=== PATIENT | female | born 1995 | race American Indian/Alaskan Native ===

== ENCOUNTER 2018-09-20 16:02 | Emergency (ER) | payer SELFPAY ==
[2018-09-20 17:05] VITALS: TEMP 98.2
--- NOTE | 2018-09-20 17:35 | ED PDOC ---
Arrival/HPI - General Chief Complaint: Female Genitourinary Time Seen by Provider: 09/20/18 16:08 Historian: Patient - History of Present Illness Narrative History of Present Illness (Text): 09/20/18 18:31 23yr old female presents today with a 4 day history of dysuria, urinary frequency, urgency and hematuria. pt denies abdominal pain. no n/v/d/c. no cp or sob. no back pain. no medications taken at home. no fever/chills. No vaginal bleeding or discharge. no other complaints. Past Medical History - Provider Review Nursing Documentation Reviewed: Yes - Travel History Have you recently traveled outside [place] w/in the past 3 mons?: No - Psychiatric Hx Substance Use: No - Anesthesia Hx Anesthesia: No Hx Anesthesia Reactions: No Hx Malignant Hyperthermia: No Family/Social History - Physician Review Nursing Documentation Reviewed: Yes Family/Social History: Unknown Family HX Smoking Status: Never Smoked Hx Alcohol Use: No Hx Substance Use: No Allergies/Home Meds Allergies/Adverse Reactions: Allergies No Known Allergies Allergy (Verified 09/20/18 16:31) Review of Systems - Review of Systems Constitutional: absent: Fatigue, Fevers Respiratory: absent: SOB, Cough Cardiovascular: absent: Chest Pain, Palpitations Gastrointestinal: absent: Abdominal Pain, Constipation, Diarrhea, Nausea, Vomiting Genitourinary Female: Dysuria, Frequency, Hematuria. absent: Urine Output Changes, Vaginal Bleeding, Vaginal Discharge Musculoskeletal: absent: Arthralgias, Back Pain, Neck Pain Skin: absent: Rash, Pruritis Neurological: absent: Headache, Dizziness Psychiatric: absent: Anxiety, Depression, Suicidal Ideation Physical Exam Vital Signs Reviewed: Yes Vital Signs Temp Pulse Resp BP Pulse Ox 09/20/18 17:04 98.2 F 78 16 118/73 100 09/20/18 16:03 98.6 F 99 H 18 138/92 H 98 Temperature: Afebrile Blood Pressure: Hypertensive Pulse: Regular Respiratory Rate: Normal Appearance: Positive for: Well-Appearing, Non-Toxic, Comfortable Pain Distress: None Mental Status: Positive for: Alert and Oriented X 3 - Systems Exam Head: Present: Atraumatic Mouth: Present: Moist Mucous Membranes Respiratory/Chest: Present: Clear to Auscultation Cardiovascular: Present: Regular Rate and Rhythm Abdomen: No: Tenderness, Distention, Rebound, Guarding Back: Present: Normal Inspection. No: CVA Tenderness, Midline Tenderness, Paraspinal Tenderness Neurological: Present: GCS=15 Skin: Present: Warm, Dry, Normal Color. No: Rashes Psychiatric: Present: Alert, Oriented x 3 Medical Decision Making ED Course and Treatment: 09/20/18 18:46 Patient is nontoxic well-appearing in no distress with stable vital signs abdomen is soft non tender non distended. pt with UTI symptoms x 4 days. Urinalysis: + leukocytes, + bacteria Urine culture: pending advised follow up with the primary care physician within the next 2 days. Advised taking medications as prescribed and return if symptoms worsen persist or if new concerning symptoms develop advised immediate return if symptoms worsen,persist or if new symptoms develop. Patient verbalizes understanding of discharge instructions and need for immediate followup. all aspects of this case were discussed the attending of record. Impression: Urinary tract infection Motrin every 6 hours as needed for pain keflex; one tablet twice daily x7 days Pyridium one tablet twice daily x3 days Followup with primary care physician within the next 2 days Follow up with the urologist for the next 2 days Return if symptoms worsen persist or if new symptoms develop Disposition/Present on Arrival - Present on Arrival Any Indicators Present on Arrival: No History of DVT/PE: No History of Uncontrolled Diabetes: No Urinary Catheter: No History of Decub. Ulcer: No History Surgical Site Infection Following: None - Disposition Have Diagnosis and Disposition been Completed?: Yes Diagnosis: Urinary tract infection Disposition: HOME/ ROUTINE Disposition Time: 17:35 Patient Plan: Discharge Patient Problems: Current Active Problems Problem Status Onset Urinary tract infection Acute Condition: GOOD Discharge Instructions (ExitCare): Urinary Tract Infections in Adults Additional Instructions: Motrin every 6 hours as needed for pain keflex; one tablet twice daily x7 days Pyridium one tablet twice daily x3 days Followup with primary care physician within the next 2 days Follow up with the urologist for the next 2 days Return if symptoms worsen persist or if new symptoms develop Prescriptions: Cephalexin [Keflex] 500 mg PO BID #14 capsule Phenazopyridine [Phenazopyridine HCl] 200 mg PO BID #6 tab Referrals: Juvenal Murdock MD [Staff Provider] - Follow up with primary Stephy Martinez MD [Medical Doctor] - Follow up with primary [employer] [facility] [Outside] - Follow up with primary Forms: [employer] ([employer]), WORK NOTE
[2018-09-20 18:10] LABS: URINE BILIRUBIN NEGATIVE (NEGATIVE); URINE BLOOD LARGE (NEGATIVE); URINE GLUCOSE (UA) NEGATIVE (NEGATIVE); URINE LEUKOCYTE ESTERASE MODERATE Leu/uL (NEGATIVE); URINE PROTEIN 30 mg/dL (<30 mg/dL); URINE UROBILINOGEN 0.2 E.U./dL (<1 E.U./dL)
[2018-09-20 18:11] LABS: URINE APPEARANCE SLIGHT-CLOUDY (CLEAR); URINE COLOR YELLOW (YELLOW)
[2018-09-20 18:18] LABS: URINE EPITHELIAL CELLS 0 - 2 /hpf (0-5); URINE RBC 15 - 20 /hpf (0-2); URINE WBC TNTC /hpf (0-6)
[2018-09-20 18:19] LABS: URINE BACTERIA MANY /hpf
[2018-09-20 19:16] VITALS: PULSE 70; RESP 18; O2SAT 99
[2018-09-20 19:17] VITALS: BP 121/70
== END 2018-09-20 18:33 | disposition home or self-care (01) ==
LOC: ED 16:02
DX: N39.0 Urinary tract infection, site not specified (principal)